=== PATIENT | female | born 1940 | race Caucasian/White ===

== ENCOUNTER 2020-03-26 15:13 | Inpatient (IN) | payer MEDICARE, SELFPAY ==
[2020-03-26 15:19] VITALS: BMI 37.7
--- NOTE | 2020-03-26 15:46 | HMH.PHAINT ---
MEDICATION RECONCILIATION COMPLETED ON PATIENT USING EXTERNAL FILL HISTORY FROM PHARMACY AND LIT FROM MD OFFICE. -ENA AMBRIZD
[2020-03-26 16:00] VITALS: BP 189/77; PULSE 61; RESP 18; TEMP 36.5; O2SAT 97
[2020-03-26 16:40] LABS: Glucose,Random 26 mg/dL (74-100)
[2020-03-26 17:26] LABS: Basophils % 0.3 % (0.1-2.0); Eosinophils # 0.2 K/mm3 (0.0-0.4); Eosinophils % 2.2 % (0.1-12.0); Hematocrit 32.3 % (37.0-47.0); Hemoglobin 10.9 g/dL (12.2-16.2); Lymphocytes # 0.9 K/mm3 (0.7-4.5); Lymphocytes % 9.7 % (10-50); Mean Corpuscular HGB Conc 33.6 g/dL (31.8-35.4); Mean Corpuscular Hemoglobin 31.3 pg (27.0-31.2); Mean Corpuscular Volume 93.1 fl (81-99); Mean Platelet Volume 8.2 fl (7.4-10.4); Monocytes # 0.5 K/mm3 (0.1-1.0); Monocytes % 5.3 % (1.7-9.3); Neutrophils # 7.9 K/mm3 (1.8-7.8); Neutrophils % 82.5 % (37.0-80.0); Platelet Count 235 K/mm3 (142-424); Red Blood Count 3.47 M/mm3 (4.20-5.40); Red Cell Distribution Width 14.7 % (11.5-17.5); White Blood Count 9.6 K/mm3 (4.8-10.8)
[2020-03-26 17:28] LABS: Chloride 103 mmol/L (98-107); Potassium 3.5 mmoL/L (3.5-5.1); Sodium 136 mmol/L (136-145)
--- NOTE | 2020-03-26 17:28 | HMH.ACPN2 ---
Internal Medicine - PN: Subj *Date: 03/26/20 *Time: 17:28 Interval history: See H&P from [facility]. Admitted from office, uncontrolled diabetes, fell at home, hypoglycemia, stasis dermatitis of legs. Exam Vital signs and Labs for Last 24 Hours: Temp Pulse Resp BP Pulse Ox 97.7 F 61 18 189/77 H 97 03/26/20 16:00 03/26/20 16:00 03/26/20 16:00 03/26/20 16:00 03/26/20 16:00 Laboratory Results - last 24 hr 03/26/20 15:44: Random Glucose 26 L* 03/26/20 17:14: WBC 9.6, RBC 3.47 L, Hgb 10.9 L, Hct 32.3 L, MCV 93.1, MCH 31.3 H, MCHC 33.6, RDW 14.7, Plt Count 235, MPV 8.2, Neut % (Auto) 82.5 H, Lymph % (Auto) 9.7 L, [place] % (Auto) 5.3, Eos % (Auto) 2.2, Baso % (Auto) 0.3, Neut # (Auto) 7.9 H, Lymph # (Auto) 0.9, [place] # (Auto) 0.5, Eos # (Auto) 0.2, Baso # (Auto) 0.0 03/26/20 17:14: Sodium 136, Potassium 3.5, Chloride 103 I & O for Last 24 hours: Intake & Output 03/24/20 03/25/20 03/26/20 03/27/20 11:59 11:59 11:59 11:59 Intake Total 120 / 120 Balance 120 / 120 Weight 206 lb 4 oz Assessment and Plan - Assessment and plan all Dx Assessment and Plan for all problems:: See Orders. Case Management consult for placement.
[2020-03-26 17:30] LABS: Alanine Aminotransferase 22 U/L (12-78); Aspartate Amino Transferase 47 U/L (14-36); Blood Urea Nitrogen 25 mg/dl (7-17); Creatinine Clearance Estimated 41 mL/min (50-200); Estimated Glomerular Filt Rate 29 ml/min (>60); GFR (African American) 35 ML/MIN (>60)
[2020-03-26 17:31] LABS: Albumin Level 3.5 g/dl (3.5-5.0); Albumin/Globulin Ratio 1.2 (1.1-1.8); Alkaline Phosphatase 82 U/L (38-126); Anion Gap 8.5 mEq/L (5-15); Bilirubin,Total 0.8 mg/dl (0.2-1.3); Calcium 8.5 mg/dl (8.4-10.2); Carbon Dioxide 28 mmol/L (22.0-30.0); Globulin 2.9 g/dL (1.3-3.2); Glucose 68 mg/dl (74-100); Total Protein,Serum 6.4 g/dl (6.3-8.2)
--- NOTE | 2020-03-26 17:48 | XR_ITS ---
PROCEDURE: XR CHEST 2V CLINICAL HISTORY: wheezing COMPARISON: CXR1VP XR chest portable from 09/07/2018 FINDINGS: There is mild cardiomegaly without failure. There are small bilateral pleural effusions with some increased density in the left lung base with obscuration of the left hemidiaphragm No acute bony abnormalities. IMPRESSION: Cardiomegaly with small bilateral effusions with atelectasis or infiltrate in the left lung base Dictated by: Rickie Ornelas MD 03/26/2020 19:23 Electronically signed by Rickie Ornelas MD in [place] 03/26/2020 19:23
[2020-03-26 17:53] LABS: POC Glucose,Bedside 104 (70-110)
--- NOTE | 2020-03-26 19:06 | PC.NURSE ---
report given to omer
[2020-03-26 19:09] LABS: Microscopic, Urine URINE MICROSCOPIC (MICROSCOPIC)
[2020-03-26 19:16] LABS: Appearance,Urine CLEAR (Clear); Bilirubin,Urine Negative (Negative); Blood, Urine 1+ (Negative); Color,Urine YELLOW (Yellow); Glucose,Urine (UA) Negative (Negative); Ketones,Urine Negative (Negative); Leukocyte Esterase,Urine Negative (Negative); Nitrate,Urine Negative (Negative); PH,Urine 6.5 (5.0-8.5); Protein,Urine 3+ (Negative); Specific Gravity, Urine 1.015 (1.005-1.030)
[2020-03-26 19:31] LABS: Bacteria,Urine Trace /lpf; Squamous Epithelial Cell,Urine Occasional #/hpf (0-5); WBC,Urine Occasional #/hpf (0-3)
[2020-03-26 19:42] LABS: POC Glucose,Bedside 76 (70-110)
[2020-03-26 19:42] LABS: POC Glucose,Bedside 57 (70-110)
[2020-03-26 20:00] VITALS: BP 105/55; PULSE 61; RESP 18; TEMP 36.6; O2SAT 97
--- NOTE | 2020-03-26 20:10 | PC.NURSE ---
Pt arrived to floor and pt's son stated that he believed her blood sugar to be low. FSBS performed and was found to be too low to read. Pt awake enough to be given orange juice and PB & elena crackers. Lab called for stat blood glucose lab draw to be obtained per protocol. FSBS obtained 15 min after admin of OJ and PB and elena crackers and found to be 43. 25 ml of D50 admin per hypoglycemia protocol. Rechecked in 15 min from admin (see MAR) and found to be 104. Pt awake, A&Ox4 and able to carry on conversation w/ staff.
[2020-03-26 20:29] LABS: POC Glucose,Bedside 131 (70-110)
[2020-03-26 23:24] LABS: POC Glucose,Bedside 133 (70-110)
[2020-03-27] VITALS (7 sets, daily range): BP systolic 127–152; BP diastolic 55–72; PULSE 62–74; RESP 16–20; TEMP 36.6–37.4; O2SAT 93–98; BMI 37.9
--- NOTE | 2020-03-27 02:57 | PC.NURSE ---
A&OX4. FSBS HAS BEEN NORMOGLYCEMIC THUS FAR. APPETITE EXCELLENT, GIVEN BEDTIME SNACK. X1 ASSIST WITH WALKER, GAIT AND BALANCE GOOD; BASELINE SOA PRESENT WITH MOVEMENT, AUDIBLE EXPIRATORY WHEEZES NOTED. PT. HAS HAD NO C/O N/V/D, PAIN OR DIZZINESS THUS FAR.
[2020-03-27 05:47] LABS: Basophils % 0.2 % (0.1-2.0); Eosinophils # 0.2 K/mm3 (0.0-0.4); Eosinophils % 2.8 % (0.1-12.0); Hematocrit 30.7 % (37.0-47.0); Hemoglobin 10.4 g/dL (12.2-16.2); Lymphocytes # 1.2 K/mm3 (0.7-4.5); Lymphocytes % 13.9 % (10-50); Mean Corpuscular HGB Conc 33.8 g/dL (31.8-35.4); Mean Corpuscular Hemoglobin 31.2 pg (27.0-31.2); Mean Corpuscular Volume 92.3 fl (81-99); Mean Platelet Volume 7.3 fl (7.4-10.4); Monocytes # 0.4 K/mm3 (0.1-1.0); Monocytes % 4.6 % (1.7-9.3); Neutrophils # 6.7 K/mm3 (1.8-7.8); Neutrophils % 78.4 % (37.0-80.0); Platelet Count 197 K/mm3 (142-424); Red Blood Count 3.33 M/mm3 (4.20-5.40); Red Cell Distribution Width 14.7 % (11.5-17.5); White Blood Count 8.6 K/mm3 (4.8-10.8)
--- NOTE | 2020-03-27 05:47 | PC.NURSE ---
0519- FSBS: 41, SECOND CHECK TOO LOW TO READ 0521- NOTIFIED LAB 0525- ADMINISTERED OJ AND PEANUT BUTTER CRACKERS 0535- LAB AT BEDSIDE 0540- RECHECKED FSBS: TOO LOW TO READ; JAYLON COFFMAN 0543- ADMINISTERED 25ML OF 50% DEXTROSE IVP 0544- (DENISA) RETURNED PAGE. NOTIFIED OF ABOVE. NEW ORDER: D/C CURRENT LANTUS ORDER. STAT LAB GLUCOSE: 37 FSBS: 305 POST ADMINISTRATION OF AMP PT. A&OX4 AT THIS TIME, CARRYING ON NORMAL CONVERSATION WITH STAFF. PT. CONTINUES TO EAT PEANUT BUTTER CRACKERS AND WATER.
[2020-03-27 05:53] LABS: Alanine Aminotransferase 18 U/L (12-78); Albumin Level 3.2 g/dl (3.5-5.0); Albumin/Globulin Ratio 1.2 (1.1-1.8); Alkaline Phosphatase 71 U/L (38-126); Anion Gap 9.9 mEq/L (5-15); Aspartate Amino Transferase 43 U/L (14-36); Bilirubin,Total 0.8 mg/dl (0.2-1.3); Blood Urea Nitrogen 31 mg/dl (7-17); Calcium 7.9 mg/dl (8.4-10.2); Carbon Dioxide 27 mmol/L (22.0-30.0); Chloride 97 mmol/L (98-107); Chol/HDL Ratio 2.4 (1-3.5); Cholesterol 97 mg/dl (140-200); Creatinine Clearance Estimated 41 mL/min (50-200); Estimated Glomerular Filt Rate 29 ml/min (>60); GFR (African American) 35 ML/MIN (>60); Globulin 2.7 g/dL (1.3-3.2); HDL Cholesterol 41 mg/dl (40-60); Potassium 3.9 mmoL/L (3.5-5.1); Sodium 130 mmol/L (136-145); Total Protein,Serum 5.9 g/dl (6.3-8.2); Triglycerides 72 mg/dl (30-150); VLDL Cholesterol 14 mg/dL (0-40)
[2020-03-27 05:54] LABS: Glucose 37 mg/dl (74-100)
[2020-03-27 06:15] LABS: Direct LDL Cholesterol 47.37 mg/dL (100-129)
[2020-03-27 06:22] LABS: POC Glucose,Bedside 145 (70-110)
[2020-03-27 06:22] LABS: POC Glucose,Bedside 305 (70-110)
--- NOTE | 2020-03-27 10:22 | P.CONPHA_ITS ---
[facility] Pharm[facility] VTE Monitoring - Patient Demographics Admission date: 03/27/20 Report Date: 03/27/20 Time: 10:22 Allergies/Adverse Reactions: Patient Allergies iodine [IODINE] Allergy (Unknown, Verified 03/26/20 18:44) Height: 1.57 m Weight: 93.553 kg - VTE Risk Labs: VTE Related Lab Results Hgb 10.4 g/dL (12.2-16.2) L 03/27/20 05:35 Hct 30.7 % (37.0-47.0) L 03/27/20 05:35 Plt Count 197 K/mm3 (142-424) 03/27/20 05:35 BUN 31 mg/dl (7-17) H 03/27/20 05:35 Creatinine 1.70 mg/dl (0.52-1.04) H 03/27/20 05:35 Estimated Creat Clear 41 mL/min (50-200) 03/27/20 05:35 Was VTE Risk Assessment Performed: Yes VTE Score: 7 VTE Risk Level: Moderate Risk - Prophylaxis Types of VTE Prophylaxis: TEDS Knee High (TIMOTHY HOSE ORDER PLACED.) Location of Applied Device: Bilateral Lower Extremeties
--- NOTE | 2020-03-27 10:26 | PC.NURSE ---
pt given neb treatment with saline. NO resultrs at this time. Pt given cup and instursed to call out if and when sputum is produced.
[2020-03-27 11:56] LABS: POC Glucose,Bedside 104 (70-110)
--- NOTE | 2020-03-27 12:20 | PC.NURSE ---
THIS RN REMOVED OLD BANDAGE FROM BLE. LEFT LOWER EXTREMITY SMALL AMOUNT OF SEROSANGUINEOUS DRAINAGE NOTED. BLE CLEANED, DRIED, APPLIED SILVER SULFADIAZINE TO LEFT ALEJANDRO. APPLIED NON ADHERENT DRESSING AND WRAPPED BLE WITH HARRIET BANDAGE. PATIENT TOLERATED WELL.
--- NOTE | 2020-03-27 12:38 | HMH.ACPN2 ---
Internal Medicine - PN: Subj *Date: 03/27/20 *Time: 12:38 Interval history: States she feels somewhat better. Still with wheeze. CXR suggest some pleural effusions and patchy infiltrate. Exam Vital signs and Labs for Last 24 Hours: Temp Pulse Resp BP Pulse Ox 99.3 F 65 20 127/62 95 03/27/20 08:00 03/27/20 08:00 03/27/20 08:00 03/27/20 08:00 03/27/20 08:00 Laboratory Results - last 24 hr 03/26/20 15:44: Random Glucose 26 L* 03/26/20 16:38: POC Glucose 104 03/26/20 17:14: WBC 9.6, RBC 3.47 L, Hgb 10.9 L, Hct 32.3 L, MCV 93.1, MCH 31.3 H, MCHC 33.6, RDW 14.7, Plt Count 235, MPV 8.2, Neut % (Auto) 82.5 H, Lymph % (Auto) 9.7 L, [place] % (Auto) 5.3, Eos % (Auto) 2.2, Baso % (Auto) 0.3, Neut # (Auto) 7.9 H, Lymph # (Auto) 0.9, [place] # (Auto) 0.5, Eos # (Auto) 0.2, Baso # (Auto) 0.0 03/26/20 17:14: Sodium 136, Potassium 3.5, Chloride 103, Carbon Dioxide 28, Anion Gap 8.5, BUN 25 H, Creatinine 1.70 H, Estimated Creat Clear 41, Estimated GFR 29 L, Est GFR ( Amer) 35 L, Glucose 68 L, Calcium 8.5, Total Bilirubin 0.8, AST 47 H, ALT 22, Alkaline Phosphatase 82, Total Protein 6.4, Albumin 3.5, Globulin 2.9, Albumin/Globulin Ratio 1.2 03/26/20 18:39: POC Glucose 57 L 03/26/20 18:58: POC Glucose 76 03/26/20 19:03: Urine Color Yellow, Urine Appearance Clear, Urine pH 6.5, Ur Specific [place] 1.015, Urine Protein 3+, Urine Glucose (UA) Negative, Urine Ketones Negative, Urine Blood 1+, Urine Nitrate Negative, Urine Bilirubin Negative, Urine Urobilinogen 1.0, Ur Leukocyte Esterase Negative, Urine WBC Occasional, Ur Squamous Epith Cells Occasional, Urine Bacteria Trace 03/26/20 20:19: POC Glucose 131 H 03/26/20 23:10: POC Glucose 133 H 03/27/20 05:35: WBC 8.6, RBC 3.33 L, Hgb 10.4 L, Hct 30.7 L, MCV 92.3, MCH 31.2, MCHC 33.8, RDW 14.7, Plt Count 197, MPV 7.3 L, Neut % (Auto) 78.4, Lymph % (Auto) 13.9, [place] % (Auto) 4.6, Eos % (Auto) 2.8, Baso % (Auto) 0.2, Neut # (Auto) 6.7, Lymph # (Auto) 1.2, [place] # (Auto) 0.4, Eos # (Auto) 0.2, Baso # (Auto) 0.0 03/27/20 05:35: Sodium 130 L, Potassium 3.9, Chloride 97 L, Carbon Dioxide 27, Anion Gap 9.9, BUN 31 H, Creatinine 1.70 H, Estimated Creat Clear 41, Estimated GFR 29 L, Est GFR ( Amer) 35 L, Glucose 37 L* D, Calcium 7.9 L, Total Bilirubin 0.8, AST 43 H, ALT 18, Alkaline Phosphatase 71, Total Protein 5.9 L, Albumin 3.2 L, Globulin 2.7, Albumin/Globulin Ratio 1.2, Triglycerides 72, Cholesterol 97 L, LDL Cholesterol Direct 47.37 L, VLDL Cholesterol 14, HDL Cholesterol 41, Cholesterol/HDL Ratio 2.4 03/27/20 05:35: Hemoglobin A1c 7.0 H 03/27/20 05:44: POC Glucose 305 H* 03/27/20 06:07: POC Glucose 145 H 03/27/20 11:42: POC Glucose 104 I & O for Last 24 hours: Intake & Output 03/25/20 03/26/20 03/27/20 03/28/20 11:59 11:59 11:59 11:59 Intake Total 1583 / 1583 240 / 240 Balance 1583 / 1583 240 / 240 Weight 206 lb 3.985 oz - Constitutional no acute distress - *Routine Respiratory Exam Present: CTA bilaterally, wheezes (upper airway, expiratory) - *Routine Cardiovascular Exam Present: RRR, bradycardia - *Routine Abdominal Exam Present: soft (nontender) - *Routine Extremities Exam Present: edema (somewhat less, less erythema, left still weeping.) - *Routine Neurological Exam Present: alert, oriented X3 Assessment and Plan (1) Pneumonia Current visit: Yes Status: Acute Category: Medical Code(s): J18.9 - Pneumonia, unspecified organism (2) Pleural effusion Current visit: Yes Status: Acute Category: Medical Code(s): J90 - Pleural effusion, not elsewhere classified (3) Hypoglycemia Current visit: Yes Status: Acute Category: Medical Code(s): E16.2 - Hypoglycemia, unspecified (4) Fall Current visit: Yes Status: Acute Category: Medical Code(s): W19.XXXA - Unspecified fall, initial encounter (5) Poorly controlled diabetes mellitus Current visit: Yes Status: Acute Category: Medical Code(s): E11.65 - Type 2 diabetes mellit
[2020-03-27 17:00] LABS: POC Glucose,Bedside 88 (70-110)
--- NOTE | 2020-03-27 17:51 | PC.NURSE ---
Addendum entered by Pauline Bernabe RN 03/27/20 18:10: DURING 1700 ADL CHECK THIS RN NOTICED PATIENT HAD DISCHARGE FROM EYES. THIS RN INQUIRED ABOUT IT TO PATIENT AND SON, BOTH STATED THAT IT IS JUST ALLERGIES. PATIENT STATED SHE WASHES HER EYES WITH BABY SHAMPOO. THIS RN ASKED OB FOR BABY SHAMPOO, THIS RN ASSISTED PATIENT WITH WASHING HER EYES AND EDUCATED THE IMPORTANCE OF NOT WHIPPING THE SECOND EYE WITH THE SAME CLOTH USED ON THE FIRST EYE. DISCHARGE FROM EYES WERE GREEN AND THICK. PATIENT VERBALIZED AN UNDERSTANDING. Original Note: PATIENT A&O X4, LUNGS AUDIBLE WHEEZING, PULSES EQUAL. PATIENT FSBS: STABLE THRU THIS RN SHIFT. PATIENT'S SON TEA AZAR PROVIDED CONTACT INFORMATION TO THIS RN, THIS RN PHONED ADMINISTRATION AND SPOKE WITH JUANA. INFORMATION IS TEA AZAR, . PATIENT AND SON STATE THAT MR. AZAR IS MEDICAL PROXY AND DURABLE POA. THIS RN ENCOURAGED MR. AZAR TO BRING IN PAPERWORK. PATIENT'S SON BROUGHT IN HOME MEDICATIONS WHICH IS IN LOCK DRAWER. NO OTHER CONCERNS AT THIS TIME.
[2020-03-27 20:37] LABS: POC Glucose,Bedside 130 (70-110)
[2020-03-27 23:50] LABS: POC Glucose,Bedside 150 (70-110)
[2020-03-28] VITALS (7 sets, daily range): BP systolic 134–163; BP diastolic 64–80; PULSE 64–77; RESP 14–20; TEMP 36.4–37; O2SAT 95–97; BMI 39.6
--- NOTE | 2020-03-28 03:31 | PC.NURSE ---
A&OX4. PT HAS TOLERATED ROOM AIR WELL THROUGHOUT SHIFT. EXPIRATORY AND AUDIBLE WHEEZES NOTED THROUGHOUT. NONPRODUCTIVE, DRY, INTERMITTENT COUGH NOTED. RESPIRATIONS REGULAR AND UNLABORED. +2 PITTING EDEMA NOTED IN LLE. +1 PITTING EDEMA NOTED IN RLE. 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 HEART RATE REGULAR. D5W 1/2 NS INFUSING AT 100ML/HR. ACTIVE BOWEL SOUNDS HEARD IN ALL 4 QUADRANTS. SOFT AND NONTENDER. PT REPORTS NO PAIN THROUGHOUT SHIFT. PT REMAINS AFEBRILE. PT REPORTS NO SOA THROUGHOUT SHIFT. PT HAS BEEN CONTINENT/INCONTINENT THIS SHIFT. USED THE BATHROOM ONCE W 2 PERSON ASSIST. PT TOLERATED WELL BUT WEAKNESS WAS NOTED. CLEAR DARK YELLOW URINE NOTED. NO BM THIS SHIFT. FSBS WITHIN NORMAL LIMITS THUS FAR. PT RESTING IN BED AT THIS TIME. BED IN LOWEST POSITION. CALL LIGHT WITHIN REACH. VSS. NO CONCERNS AT THIS TIME. WILL CONTINUE TO MONITOR.
[2020-03-28 06:24] LABS: POC Glucose,Bedside 152 (70-110)
[2020-03-28 06:47] LABS: Basophils % 0.3 % (0.1-2.0); Eosinophils # 0.3 K/mm3 (0.0-0.4); Eosinophils % 3.3 % (0.1-12.0); Hemoglobin 9.6 g/dL (12.2-16.2); Lymphocytes # 1.4 K/mm3 (0.7-4.5); Lymphocytes % 17.1 % (10-50); Mean Corpuscular HGB Conc 32.7 g/dL (31.8-35.4); Mean Corpuscular Volume 94.6 fl (81-99); Mean Platelet Volume 7.4 fl (7.4-10.4); Monocytes # 0.4 K/mm3 (0.1-1.0); Monocytes % 5.1 % (1.7-9.3); Neutrophils # 5.8 K/mm3 (1.8-7.8); Neutrophils % 74.2 % (37.0-80.0); Platelet Count 187 K/mm3 (142-424); Red Blood Count 3.09 M/mm3 (4.20-5.40); Red Cell Distribution Width 14.6 % (11.5-17.5); White Blood Count 7.9 K/mm3 (4.8-10.8)
[2020-03-28 06:49] LABS: Hematocrit 29.2 % (37.0-47.0)
[2020-03-28 06:54] LABS: Anion Gap 12.4 mEq/L (5-15); Blood Urea Nitrogen 36 mg/dl (7-17); Calcium 7.9 mg/dl (8.4-10.2); Carbon Dioxide 25 mmol/L (22.0-30.0); Chloride 96 mmol/L (98-107); Estimated Glomerular Filt Rate 24 ml/min (>60); GFR (African American) 29 ML/MIN (>60); Glucose 152 mg/dl (74-100); Potassium 4.4 mmoL/L (3.5-5.1); Sodium 129 mmol/L (136-145)
[2020-03-28 06:59] LABS: Creatinine Clearance Estimated 36 mL/min (50-200)
[2020-03-28 11:06] LABS: POC Glucose,Bedside 228 (70-110)
--- NOTE | 2020-03-28 12:50 | XR_ITS ---
PROCEDURE: XR CHEST 2V CLINICAL HISTORY: FOLLOW-UP PNEUMONIA COMPARISON: CXR1VP XR chest portable from 09/07/2018 XR CHEST 2V from 03/26/2020 FINDINGS: There is cardiomegaly with mild pulmonary venous congestion suggesting mild CHF. There are small bilateral pleural effusions. Patchy density is present in the right lung base which may be due to an area of atelectasis or infiltrate. The left lung base is not as well penetrated as on the previous exam. No acute bony abnormalities. IMPRESSION: Mild CHF with small bilateral effusions with atelectasis or infiltrate in the right lung base which appears slightly worse Dictated by: Rickie Ornelas MD 03/28/2020 14:07 Electronically signed by Rickie Ornelas MD in [place] 03/28/2020 14:07
--- NOTE | 2020-03-28 13:24 | HMH.ACPN2 ---
Internal Medicine - PN: Subj *Date: 03/28/20 *Time: 13:24 Interval history: She states that she slept well but she still wheezing. Exam Vital signs and Labs for Last 24 Hours: Temp Pulse Resp BP Pulse Ox 97.8 F 68 18 137/65 97 03/28/20 08:00 03/28/20 08:00 03/28/20 08:00 03/28/20 08:00 03/28/20 08:00 Laboratory Results - last 24 hr 03/27/20 16:39: POC Glucose 88 03/27/20 19:59: POC Glucose 130 H 03/27/20 23:44: POC Glucose 150 H 03/28/20 06:12: POC Glucose 152 H 03/28/20 06:35: WBC 7.9, RBC 3.09 L, Hgb 9.6 L, Hct 29.2 L, MCV 94.6, MCH 31.0, MCHC 32.7, RDW 14.6, Plt Count 187, MPV 7.4, Neut % (Auto) 74.2, Lymph % (Auto) 17.1, [place] % (Auto) 5.1, Eos % (Auto) 3.3, Baso % (Auto) 0.3, Neut # (Auto) 5.8, Lymph # (Auto) 1.4, [place] # (Auto) 0.4, Eos # (Auto) 0.3, Baso # (Auto) 0.0 03/28/20 06:35: Sodium 129 L, Potassium 4.4, Chloride 96 L, Carbon Dioxide 25, Anion Gap 12.4, BUN 36 H, Creatinine 2.00 H, Estimated Creat Clear 36, Estimated GFR 24 L, Est GFR ( Amer) 29 L, Glucose 152 H, Calcium 7.9 L 03/28/20 10:49: POC Glucose 228 H I & O for Last 24 hours: Intake & Output 03/26/20 03/27/20 03/28/20 03/29/20 11:59 11:59 11:59 11:59 Intake Total 1583 / 1583 2520 / 2520 Output Total 400 / 400 Balance 1583 / 1583 2120 / 2120 Weight 206 lb 3.985 oz 215 lb 6 oz Microbiology Reports for the Last 24 Hours: Microbiology 03/27/20 12:45 Sputum - Expectorated Sputum Gram Stain - Final 03/27/20 12:45 Sputum - Expectorated Sputum Sputum Culture - Final - Constitutional no acute distress - *Routine Respiratory Exam Present: decreased breath sounds, wheezes (Today I hear some wheezes on the right.) - *Routine Cardiovascular Exam Present: RRR - *Routine Extremities Exam Present: edema (Rommel bandages in place.) Assessment and Plan (1) Pneumonia Current visit: Yes Status: Acute Category: Medical Code(s): J18.9 - Pneumonia, unspecified organism (2) Pleural effusion Current visit: Yes Status: Acute Category: Medical Code(s): J90 - Pleural effusion, not elsewhere classified (3) Hypoglycemia Current visit: Yes Status: Acute Category: Medical Code(s): E16.2 - Hypoglycemia, unspecified (4) Fall Current visit: Yes Status: Acute Category: Medical Code(s): W19.XXXA - Unspecified fall, initial encounter (5) Poorly controlled diabetes mellitus Current visit: Yes Status: Acute Category: Medical Code(s): E11.65 - Type 2 diabetes mellitus with hyperglycemia (6) Leg abrasion Current visit: Yes Status: Acute Category: Medical Code(s): S80.819A - Abrasion, unspecified lower leg, initial encounter (7) Stasis dermatitis of both legs Current visit: Yes Status: Acute Category: Medical Code(s): I87.2 - Venous insufficiency (chronic) (peripheral) - Assessment and plan all Dx Assessment and Plan for all problems:: Recheck chest x-ray. 1 dose of Solu-Medrol ordered.
[2020-03-28 16:44] LABS: POC Glucose,Bedside 165 (70-110)
--- NOTE | 2020-03-28 17:41 | PC.NURSE ---
PATIENT A&OX4, LUNGS WHEEZING, PULSES EQUAL. PATIENT SPENT MOST OF THIS RN SHIFT UP TO CHAIR. PATIENT REFUSED 1645 INSULIN ADMINISTRATION DUE TO, SHE FEEL SHE DROPPED TOO MUCH FROM THIS AM. FSBS WAS 228 AT 1130; FSBS AT 1630 WAS 165. PATIENT AMBULATES WITH WALKER X1 ASSIST AND TOLERATES WELL. NO OTHER CONCERNS AT THIS TIME.
[2020-03-28 21:27] LABS: POC Glucose,Bedside 231 (70-110)
--- NOTE | 2020-03-28 21:35 | PC.NURSE ---
THIS RN GAVE PT A SHOWER THIS EVENING PER REQUEST. POST SHOWER THIS RN REDRESSED HER BLISTERS ON BLE. HER LLE NOTED WITH OPEN BLISTER WITH SERSANG DRAINAGE. APPLY SILVADENE CREAM TO OPEN BLISTER. REAPPLIED NONADHESIVE PADS AND HARRIET BANDAGES. RLE NOTED WITH REDNESS AND FLUID FILLED BLISTERS WITH EDEMA. PT TOLERATED DSG CHANGE WELL.
[2020-03-28 23:38] LABS: POC Glucose,Bedside 329 (70-110)
[2020-03-29] VITALS (9 sets, daily range): BP systolic 140–192; BP diastolic 80–90; PULSE 73–88; RESP 14–21; TEMP 36.6–36.8; O2SAT 95–98; BMI 39.0; BMI 38.9
[2020-03-29 05:47] LABS: POC Glucose,Bedside 356 (70-110)
[2020-03-29 05:54] LABS: Basophils % 0.1 % (0.1-2.0); Eosinophils % 0.1 % (0.1-12.0); Lymphocytes # 0.5 K/mm3 (0.7-4.5); Lymphocytes % 4.7 % (10-50); Mean Corpuscular HGB Conc 33.2 g/dL (31.8-35.4); Mean Corpuscular Hemoglobin 31.7 pg (27.0-31.2); Mean Corpuscular Volume 95.5 fl (81-99); Monocytes # 0.2 K/mm3 (0.1-1.0); Monocytes % 1.7 % (1.7-9.3); Neutrophils # 9.6 K/mm3 (1.8-7.8); Neutrophils % 93.5 % (37.0-80.0); Platelet Count 237 K/mm3 (142-424); Red Blood Count 3.56 M/mm3 (4.20-5.40); Red Cell Distribution Width 14.5 % (11.5-17.5); White Blood Count 10.3 K/mm3 (4.8-10.8)
[2020-03-29 05:59] LABS: MANUAL DIFFERENTIAL MANUAL DIFFERENTIAL (MANUAL DIFF)
[2020-03-29 06:14] LABS: Chloride 99 mmol/L (98-107); Lymphocytes % 3 % (10-50); Neutrophils % 92 % (42-76); Platelet Estimate Normal; Potassium 5.1 mmoL/L (3.5-5.1); RBC Morphology Normal; Rouleaux 1+; Sodium 135 mmol/L (136-145); Total Cells Counted 100
[2020-03-29 06:17] LABS: Anion Gap 18.1 mEq/L (5-15); Blood Urea Nitrogen 45 mg/dl (7-17); Carbon Dioxide 23 mmol/L (22.0-30.0); Creatinine Clearance Estimated 36 mL/min (50-200); Estimated Glomerular Filt Rate 24 ml/min (>60); GFR (African American) 29 ML/MIN (>60); Glucose 346 mg/dl (74-100)
[2020-03-29 06:18] LABS: Hemoglobin 11.3 g/dL (12.2-16.2)
--- NOTE | 2020-03-29 06:46 | PC.NURSE ---
A&O X4. PT RESTED WELL WITH EYES CLOSED THIS SHIFT WITH NO COMPLAINTS. DENIES PAIN. TOLERATED RA WELL WITH NO C/O SOA. AUDIBLE WHEEZING NOTED UPON INITIAL ASSESSMENT. NO RESPIRATORY DISTRESS NOTED THIS SHIFT. SPUTUM NEEDED. INTERMITTENT NON-PRODUCTIVE COUGH NOTED T/O SHIFT. ADEQUATE URINE OUTPUT NOTED THIS SHIFT. URINE NOTED CLEAR AND BRIGHT YELLOW IN COLOR. MILD EDEMA NOTED TO BLE. DSG TO BLE NOTED C/D/I. VSS. AMB WELL WITH ASSIST X1 AND WALKER. PT NOTED WITH MORE STRENGTH THIS SHIFT VERSUS PREVIOUS INDEPENDENT JEWELER WITH RN. REMAINS SAFE. CALL LIGHT WITHIN REACH. WILL CONTINUE TO MONITOR.
--- NOTE | 2020-03-29 08:25 | HMH.ACPN2 ---
Internal Medicine - PN: Subj *Date: 03/29/20 *Time: 08:25 Interval history: Feels she is better this a.m. She states she slept. She is not short of breath. She denies chest pain. She is eating without problems. States the food is really good. She is not sure when her bowels last moved. She is voiding QS. Weight is 212 this morning. O2 sats are good on room air. Sodium has improved to 135 with a potassium of 5.1. BUN is 45 and creatinine is 2. Blood sugars have been elevated 329, 356, and 346. Remains on sliding scale. Repeat chest x-ray 03/28/2020 revealed mild CHF with small bilateral effusions and with atelectasis or infiltrate in the right lung base which appears slightly worse. Exam Vital signs and Labs for Last 24 Hours: Temp Pulse Resp BP Pulse Ox 97.8 F 88 14 140/80 96 03/29/20 03:48 03/29/20 06:05 03/29/20 03:48 03/29/20 03:48 03/29/20 06:05 Laboratory Results - last 24 hr 03/28/20 10:49: POC Glucose 228 H 03/28/20 16:35: POC Glucose 165 H 03/28/20 21:11: POC Glucose 231 H 03/28/20 23:30: POC Glucose 329 H* 03/29/20 05:30: POC Glucose 356 H* 03/29/20 05:41: WBC 10.3 D, RBC 3.56 L, Hgb 11.3 L D, Hct 34.0 L, MCV 95.5, MCH 31.7 H, MCHC 33.2, RDW 14.5, Plt Count 237 D, MPV 8.0, Neut % (Auto) 93.5 H, Lymph % (Auto) 4.7 L, [place] % (Auto) 1.7, Eos % (Auto) 0.1, Baso % (Auto) 0.1, Neut # (Auto) 9.6 H, Lymph # (Auto) 0.5 L, [place] # (Auto) 0.2, Eos # (Auto) 0.0, Baso # (Auto) 0.0, Total Counted 100, Neutrophils % (Manual) 92 H, Band Neutrophils % 5.0, Lymphocytes % (Manual) 3 L, Platelet Estimate Normal, RBC Morphology Normal, Rouleaux 1+ 03/29/20 05:41: Sodium 135 L, Potassium 5.1, Chloride 99, Carbon Dioxide 23, Anion Gap 18.1 H, BUN 45 H, Creatinine 2.00 H, Estimated Creat Clear 36, Estimated GFR 24 L, Est GFR ( Amer) 29 L, Glucose 346 H D, Calcium 9.0 D I & O for Last 24 hours: Intake & Output 03/26/20 03/27/20 03/28/20 03/29/20 11:59 11:59 11:59 11:59 Intake Total 1583 / 1583 2520 / 2520 240 / 240 Output Total 400 / 400 2500 / 2500 Balance 1583 / 1583 2120 / 2120 -2260 / -2260 Weight 206 lb 3.985 oz 215 lb 6 oz 212 lb 6 oz - Constitutional no acute distress Comments: Sitting on the bedside and eating her breakfast. Appears comfortable. She is conversant. - *Routine Respiratory Exam Comments: Bilateral fine crackles in the bases. - *Routine Cardiovascular Exam Present: RRR - *Routine Extremities Exam Comments: Rommel wraps on bilateral lower extremities. - *Routine Neurological Exam Present: alert, oriented X3 Assessment and Plan (1) Pneumonia Current visit: Yes Status: Acute Category: Medical Code(s): J18.9 - Pneumonia, unspecified organism (2) Pleural effusion Current visit: Yes Status: Acute Category: Medical Code(s): J90 - Pleural effusion, not elsewhere classified (3) Hypoglycemia Current visit: Yes Status: Acute Category: Medical Code(s): E16.2 - Hypoglycemia, unspecified (4) Fall Current visit: Yes Status: Acute Category: Medical Code(s): W19.XXXA - Unspecified fall, initial encounter (5) Poorly controlled diabetes mellitus Current visit: Yes Status: Acute Category: Medical Code(s): E11.65 - Type 2 diabetes mellitus with hyperglycemia (6) Leg abrasion Current visit: Yes Status: Acute Category: Medical Code(s): S80.819A - Abrasion, unspecified lower leg, initial encounter (7) Stasis dermatitis of both legs Current visit: Yes Status: Acute Category: Medical Code(s): I87.2 - Venous insufficiency (chronic) (peripheral) - Assessment and plan all Dx Assessment and Plan for all problems:: Care management to see patient today. Discussed disposition with patient. She is interested in home health. Will have physical therapy to evaluate her today. Continue with pneumonia protocol.
--- NOTE | 2020-03-29 09:53 | HMH.PTEV ---
Physical Therapy Evaluation Rehab PT IP Evaluation Start: 03/29/20 08:24 Freq: ONCE Status: Active Protocol: Document 03/29/20 09:49 MARY JO (Rec: 03/29/20 09:52 MARY JO [id number]) Subjective/History History History See H&P from A. Admitted from office, uncontrolled diabetes, fell at home, hypoglycemia, stasis dermatitis of legs Subjective Subjective Pt reports c/o wheezing w/ activity Rehab PT IP Eval Objective Appearance Patient Behavior Appropriate,Cooperative Patient Orientation Person,Place,Time Difficulty following instructions none Speech Pattern Appropriate Ambulation Patient Able to Ambulate Yes Ambulation Observation IP General Gait Pattern Observation Shuffling Step Ambulation Distance (feet) 30 Ambulation Assistive Device Rolling Walker Ambulation Ability Contact Guard/Hand Hold Balance Ability to Arise Able, uses arms to help Sitting Balance Steady, safe Standing Balance Steady, wide stance Dynamic Sitting Balance Ability Good Dynamic Standing Balance Ability Fair Transfers Chair Transfer Ability Supervision/Stand by Sit to Stand Bed Transfer Ability Supervision/Stand by Sit to Stand Chair Transfer Ability Supervision/Stand by Rehab PT IP prob,goals,plan Problems Date of Evaluation: 03/29/20 PT IP Problems Gait,Self care Rehab Potential Rehab Potential Good Equipment Needs Assistive Devices Rolling / Wheeled Walker Plan PT Intervention Plan Transfers,Gait,Self care, Safety,Therapeutic Exercise PT Plan Frequency BID Duration LOS Discharge Goals Sit to Stand Chair Transfer Ability Supervision/Stand by Ambulation Assistive Device Rolling Walker Ambulation Distance (feet) 30 Discharge Plan PT Discharge Plan Pt to return home once medically stable - pt would benefit from continued therapy and supervision at home G -code Required Yes Eval Complexity Eval Charge Codes 84971 - Low Complexity G Codes PT Current Status Mobility PT Current Status Modifier CJ-At least 20% but less than 40% impaired, limited or restricted PT Goal Status Mobility PT Goal Status Modifer CJ-At least 20% but less than 40% impaired, limited or
[2020-03-29 09:54] LABS: POC Glucose,Bedside 41 (70-110)
[2020-03-29 09:54] LABS: POC Glucose,Bedside < 40 (70-110)
[2020-03-29 09:54] LABS: POC Glucose,Bedside < 40 (70-110)
[2020-03-29 09:54] LABS: POC Glucose,Bedside < 40 (70-110)
[2020-03-29 09:54] LABS: POC Glucose,Bedside < 40 (70-110)
[2020-03-29 09:54] LABS: POC Glucose,Bedside 43 (70-110)
--- NOTE | 2020-03-29 10:01 | PC.NURSE ---
nurse aware of morning bp being high, rechecked at 10am, nurse aware
[2020-03-29 11:58] LABS: POC Glucose,Bedside 365 (70-110)
--- NOTE | 2020-03-29 16:52 | PC.NURSE ---
Pt has been pleasant and cooperative this shift. A&O X4. No complaints of pain or SOA. Assessment reveals that lung sounds are clear and non-pitting edema is noted to BUE/BLE. Pt is on room air with sats. >95%. Pt is a stand-by assist when ambulating back/forth to the bathroom and throughout the room. Pt also uses a walker when ambulating. Brief is in place to due to occasional stress incontinence. Pt refuses TIMOTHY hose due to bilateral paul wounds and non-skid socks are in place to bilateral feet. Bilateral paul wounds are covered with Silvadene, telfa pads, and an HARRIET wrap. Pt has sat up in the chair for the majority of the day. Pt has had 1 BM this shift and no trouble urinating. Appetite and PO intake are good and pt eats majority of most meals. 20 G peripheral IV in the LT hand is patent and SL. FSBS results have been 365 and 259, both of which required insulin coverage per sliding scale. B/P has been elevated today and Yris Ibarra APRN was notified. Atenolol dose was then changed to match what the pt takes at home everyday, which is 25 MG in the AM and 50 MG in the evening. All other vital signs have been stable this shift. Call light within reach. Will continue to monitor.
[2020-03-29 16:57] LABS: POC Glucose,Bedside 259 (70-110)
--- NOTE | 2020-03-29 19:08 | PC.NURSE ---
report given to chris
[2020-03-29 23:47] LABS: POC Glucose,Bedside 407 (70-110)
[2020-03-30] VITALS (10 sets, daily range): BP systolic 105–167; BP diastolic 58–87; PULSE 65–78; RESP 16–20; TEMP 36.3–36.6; O2SAT 93–100; BMI 39.2
--- NOTE | 2020-03-30 03:54 | PC.NURSE ---
A&OX4 pt has no complaints of pain this shift. Pt does get SOA on exertion but returns to baseline quickly. pt has ambulated to BR X 1. Rommel wraps in place to BLE. pt has rested well this shift.
--- NOTE | 2020-03-30 04:00 | PC.NURSE ---
EDUCATED PT. ON HOSPITAL POLICY OF CHANGING IV SITE EVERY 72 HOURS AND THAT HER IV IS DUE TO BE CHANGED. PT. REFUSES IV SITE TO BE CHANGED AT THIS TIME; PT. VERBALIZED UNDERSTANDING OF HOSPITAL POLICY.
[2020-03-30 06:10] LABS: POC Glucose,Bedside 247 (70-110)
[2020-03-30 06:50] LABS: Chloride 100 mmol/L (98-107); Potassium 4.9 mmoL/L (3.5-5.1); Sodium 136 mmol/L (136-145)
[2020-03-30 06:53] LABS: Anion Gap 14.9 mEq/L (5-15); Blood Urea Nitrogen 54 mg/dl (7-17); Calcium 9.1 mg/dl (8.4-10.2); Carbon Dioxide 26 mmol/L (22.0-30.0); Creatinine Clearance Estimated 38 mL/min (50-200); Estimated Glomerular Filt Rate 26 ml/min (>60); GFR (African American) 31 ML/MIN (>60); Glucose 237 mg/dl (74-100)
--- NOTE | 2020-03-30 08:47 | HMH.ACPN ---
Internal Medicine - PN: Subj *Date: 03/30/20 *Time: 08:47 Exam Vital signs and Labs for Last 24 Hours: Temp Pulse Resp BP Pulse Ox 97.6 F 70 18 154/69 H 97 03/30/20 08:00 03/30/20 08:00 03/30/20 08:00 03/30/20 08:00 03/30/20 08:00 Laboratory Results - last 24 hr 03/26/20 15:35: POC Glucose < 40 L* 03/26/20 15:52: POC Glucose < 40 L* 03/26/20 16:16: POC Glucose 43 L* 03/27/20 05:19: POC Glucose 41 L* 03/27/20 05:21: POC Glucose < 40 L* 03/27/20 05:36: POC Glucose < 40 L* 03/29/20 11:43: POC Glucose 365 H* 03/29/20 16:47: POC Glucose 259 H 03/29/20 23:35: POC Glucose 407 H* 03/30/20 05:45: POC Glucose 247 H 03/30/20 06:20: Sodium 136, Potassium 4.9, Chloride 100, Carbon Dioxide 26, Anion Gap 14.9, BUN 54 H, Creatinine 1.90 H, Estimated Creat Clear 38, Estimated GFR 26 L, Est GFR ( Amer) 31 L, Glucose 237 H, Calcium 9.1 I & O for Last 24 hours: Intake & Output 03/27/20 03/28/20 03/29/20 03/30/20 23:59 23:59 23:59 23:59 Intake Total 2281 / 2281 1582 / 1582 650 / 650 480 / 480 Output Total 400 / 400 1600 / 2500 2100 / 2100 Balance 1881 / 188 -18 / -918 -1450 / -1450 480 / 480 Weight 93.553 kg 97.692 kg 96 kg 96.615 kg Assessment and Plan (1) Pneumonia Current visit: Yes Status: Acute Category: Medical Code(s): J18.9 - Pneumonia, unspecified organism (2) Pleural effusion Current visit: Yes Status: Acute Category: Medical Code(s): J90 - Pleural effusion, not elsewhere classified (3) Hypoglycemia Current visit: Yes Status: Acute Category: Medical Code(s): E16.2 - Hypoglycemia, unspecified (4) Fall Current visit: Yes Status: Acute Category: Medical Code(s): W19.XXXA - Unspecified fall, initial encounter (5) Poorly controlled diabetes mellitus Current visit: Yes Status: Acute Category: Medical Code(s): E11.65 - Type 2 diabetes mellitus with hyperglycemia (6) Leg abrasion Current visit: Yes Status: Acute Category: Medical Code(s): S80.819A - Abrasion, unspecified lower leg, initial encounter (7) Stasis dermatitis of both legs Current visit: Yes Status: Acute Category: Medical Code(s): I87.2 - Venous insufficiency (chronic) (peripheral) The patient's infection will respond to the chosen ABx?: Yes Is the patient receiving the right drug, dose, and route?: Yes Could a more targeted ABx be ordered?: No (WBC WNL, AFEBRILE)
--- NOTE | 2020-03-30 09:08 | HMH.ACPN2 ---
Internal Medicine - PN: Subj *Date: 03/30/20 *Time: 09:08 Interval history: She seems to be doing better. Blood sugars have run high. We need to restart some long-acting insulin. She still has some upper respiratory wheeze but her lungs are clear today. She needs COVID testing if she is going to be placed in a nursing facility. Chest x-ray was reviewed yesterday with Dr. Ornelas. Exam Vital signs and Labs for Last 24 Hours: Temp Pulse Resp BP Pulse Ox 97.6 F 70 18 154/69 H 97 03/30/20 08:00 03/30/20 08:00 03/30/20 08:00 03/30/20 08:00 03/30/20 08:00 Laboratory Results - last 24 hr 03/26/20 15:35: POC Glucose < 40 L* 03/26/20 15:52: POC Glucose < 40 L* 03/26/20 16:16: POC Glucose 43 L* 03/27/20 05:19: POC Glucose 41 L* 03/27/20 05:21: POC Glucose < 40 L* 03/27/20 05:36: POC Glucose < 40 L* 03/29/20 11:43: POC Glucose 365 H* 03/29/20 16:47: POC Glucose 259 H 03/29/20 23:35: POC Glucose 407 H* 03/30/20 05:45: POC Glucose 247 H 03/30/20 06:20: Sodium 136, Potassium 4.9, Chloride 100, Carbon Dioxide 26, Anion Gap 14.9, BUN 54 H, Creatinine 1.90 H, Estimated Creat Clear 38, Estimated GFR 26 L, Est GFR ( Amer) 31 L, Glucose 237 H, Calcium 9.1 I & O for Last 24 hours: Intake & Output 03/27/20 03/28/20 03/29/20 03/30/20 11:59 11:59 11:59 11:59 Intake Total 1583 / 1583 2520 / 2520 600 / 600 770 / 770 Output Total 400 / 400 3100 / 3100 600 / 600 Balance 1583 / 1583 2120 / 2120 -2500 / -2500 170 / 170 Weight 206 lb 3.985 oz 215 lb 6 oz 212 lb 6 oz 213 lb - Constitutional no acute distress - *Routine HEENT Exam Head: Present: normocephalic Eye: Present: PERRL ENT: Present: mucous membranes moist - *Routine Respiratory Exam Present: CTA bilaterally (Upper airway wheezes heard.). Absent: wheezes - *Routine Cardiovascular Exam Present: RRR - *Routine Abdominal Exam Present: soft. Absent: tenderness - *Routine Extremities Exam Absent: edema (Rommel wrapped) - Routine Back/Spine/Pelvis Exam Back/Spine: Present: kyphosis - *Routine Neurological Exam Present: alert, oriented X3 Assessment and Plan (1) Pneumonia Current visit: Yes Status: Acute Category: Medical Code(s): J18.9 - Pneumonia, unspecified organism (2) Pleural effusion Current visit: Yes Status: Acute Category: Medical Code(s): J90 - Pleural effusion, not elsewhere classified (3) Hypoglycemia Current visit: Yes Status: Acute Category: Medical Code(s): E16.2 - Hypoglycemia, unspecified (4) Fall Current visit: Yes Status: Acute Category: Medical Code(s): W19.XXXA - Unspecified fall, initial encounter (5) Poorly controlled diabetes mellitus Current visit: Yes Status: Acute Category: Medical Code(s): E11.65 - Type 2 diabetes mellitus with hyperglycemia (6) Leg abrasion Current visit: Yes Status: Acute Category: Medical Code(s): S80.819A - Abrasion, unspecified lower leg, initial encounter (7) Stasis dermatitis of both legs Current visit: Yes Status: Acute Category: Medical Code(s): I87.2 - Venous insufficiency (chronic) (peripheral) - Assessment and plan all Dx Assessment and Plan for all problems:: I will order Lantus 10 units twice daily. COVID testing is ordered.
[2020-03-30 09:43] LABS: POC Glucose,Bedside 214 (70-110)
--- NOTE | 2020-03-30 09:44 | SW/DCPLANNER ---
SPOKE WITH PATIENT A COUPLE OF TIMES YESTERDAY REGARDING DISCHARGE PLANNING... PATIENT STATED SHE IS WANTING TO GO SOMEWHERE FOR SOME REHAB SERVICES...I EXPLAINED TO HER THAT I HAD SPOKEN WITH [facility] AND THEY DO HAVE A FEMALE BED. PATIENT STATED SHE LIVES IN [facility] AND EVEN ASKED ABOUT [facility] IN [place].. I EXPLAINED TO HER THAT I HAD SENT IT TO [facility] AND IF THEY HAVE SENT IT IN FOR A PRECERT I CAN NOT SEND IT TO ANOTHER FACILITY UNTIL WE HEAR FROM THEM. HER GOAL IS TO RETURN BACK HOME SHE SAID AFTER SHE COMPLETES HER REHAB SERVICES... WAITING TO HEAR BACK TO WHETHER OR NOT SHE CAN DISCHARGE TO [facility]....
[2020-03-30 09:49] LABS: Coronavirus 19 IgG Antibody Negative (Negative); Coronavirus 19 IgM Antibody Negative (Negative)
--- NOTE | 2020-03-30 09:58 | SW/DCPLANNER ---
Addendum entered by Krissy [place] 03/31/20 14:04: Second COVID is NEGATIVE. Patient discharged today to [facility] via son. Addendum entered by Krissy [place] 03/31/20 10:20: I have informed Bernie with [facility] that this patient will discharge today. Currently waiting on COVID second NEGATIVE testing per admission to . I will call patients son once patient is ready for discharge for transportation. Addendum entered by Krissy [place] 03/30/20 17:52: I have spoke with patients son (Herve) regarding discharge plans and transportation. Son is agreeable to transport patient to [facility] once stable for discharge. I will contact son in the AM regarding discharge time. Addendum entered by Krissy [place] 03/30/20 17:15: [facility] has called back and stated that she can accept this patient for tomorrow. I will informed patient today. [facility] has stated aside from NEGATIVE IgG/IgM today patient will need one more negative screening (this can be another blood test) prior to discharge. Addendum entered by Krissy [place] 03/30/20 15:30: [facility] has now stated that this patients insurance does NOT require a precert. [facility] has stated that she has not had time to review referral since faxed at 1PM yesterday (03/29/2020) and that she will review referral tomorrow. I have informed Bernie that patient will be ready for discharge tomorrow pending no setbacks. I have informed patient regarding situation and she has asked that her information be faxed to [facility] in [facility] where he son resides. I have spoke with Bernie at [facility] and she has stated that she does have beds available. Patient information has been faxed to both [facility] and [facility] in [facility] at this time. Addendum entered by Krissy [place] 03/30/20 12:22: [facility] has stated that she has began precert for this patient. I will continue to follow up with patient regarding situation. Original Note: Patient information has been faxed to [facility] at [facility]. I am currently waiting to hear back from [facility] regarding referral. Patient will require a precert and COVID testing.
[2020-03-30 12:15] LABS: POC Glucose,Bedside 195 (70-110)
--- NOTE | 2020-03-30 14:06 | PC.NURSE ---
Addendum entered by Anette Cardoza RN 03/30/20 18:32: pt has had abductor pillow in place while laying in bed today. Original Note: pt states she does not want her dressings to ble to be changed at this time. states it can be done later. will ask again later in shift. pt educated on hospital policy about iv changes every 72hrs. pt cont. to refuse for her iv to be changed. she has done well today with walking to bathroom. does express sob but recovers quickly. vss. will cont. to monitor.
[2020-03-30 17:31] LABS: POC Glucose,Bedside 239 (70-110)
--- NOTE | 2020-03-30 19:06 | PC.NURSE ---
report given to chris
[2020-03-30 21:06] LABS: POC Glucose,Bedside 226 (70-110)
[2020-03-30 23:31] LABS: POC Glucose,Bedside 237 (70-110)
[2020-03-31 04:00] VITALS: BP 133/47; PULSE 66; RESP 18; TEMP 36.6; O2SAT 95
[2020-03-31 05:00] VITALS: BMI 39.2
[2020-03-31 06:20] LABS: POC Glucose,Bedside 146 (70-110)
[2020-03-31 06:30] VITALS: PULSE 65; PULSE 66; O2SAT 96
[2020-03-31 08:00] VITALS: BP 133/61; PULSE 95; RESP 16; TEMP 36.7; O2SAT 93; O2SAT 94
--- NOTE | 2020-03-31 08:32 | P.PN_ITS ---
Internal Medicine - PN: Subj *Date: 03/31/20 *Time: 08:32 Interval history: Patient states she slept at intervals. She ate a cucumber which gave her indigestion last night. Otherwise she is eating without difficulty. She did not feel wheezing yesterday. She does have shortness of breath with exertion. Exam Vital signs and Labs for Last 24 Hours: Temp Pulse Resp BP Pulse Ox 98.0 F 95 H 16 133/61 94 L 03/31/20 08:00 03/31/20 08:00 03/31/20 08:00 03/31/20 08:00 03/31/20 08:00 Laboratory Results - last 24 hr 03/30/20 06:20: SARS-CoV-2 IgG Ab (Rapid) Negative, SARS-CoV-2 IgM Ab (Rapid) Negative 03/30/20 09:31: POC Glucose 214 H 03/30/20 11:46: POC Glucose 195 H 03/30/20 17:18: POC Glucose 239 H 03/30/20 20:26: POC Glucose 226 H 03/30/20 23:23: POC Glucose 237 H 03/31/20 06:06: POC Glucose 146 H I & O for Last 24 hours: Intake & Output 03/28/20 03/29/20 03/30/20 03/31/20 11:59 11:59 11:59 11:59 Intake Total 2520 / 2520 600 / 600 770 / 770 720 / 720 Output Total 400 / 400 3100 / 3100 1000 / 1000 1050 / 1050 Balance 2120 / 2120 -2500 / -2500 -230 / -230 -330 / -330 Weight 215 lb 6 oz 212 lb 6 oz 213 lb 212 lb 14.4 oz - Constitutional no acute distress Comments: Sitting comfortably in chair at bedside. - *Routine Respiratory Exam Comments: Few bibasilar crackles. - *Routine Cardiovascular Exam Present: RRR, murmur - *Routine Abdominal Exam Present: soft, normoactive bowel sounds. Absent: tenderness - *Routine Extremities Exam Present: edema. Absent: calf tenderness - *Routine Skin Exam Comments: Lower leg wound is clean with surrounding erythema. Lower leg with blister and erythema. Bilateral lower leg edema. Assessment and Plan (1) Pneumonia Current visit: Yes Status: Acute Category: Medical Code(s): J18.9 - Pneumonia, unspecified organism (2) Pleural effusion Current visit: Yes Status: Acute Category: Medical Code(s): J90 - Pleural effusion, not elsewhere classified (3) Hypoglycemia Current visit: Yes Status: Acute Category: Medical Code(s): E16.2 - Hypoglycemia, unspecified (4) Fall Current visit: Yes Status: Acute Category: Medical Code(s): W19.XXXA - Unspecified fall, initial encounter (5) Poorly controlled diabetes mellitus Current visit: Yes Status: Acute Category: Medical Code(s): E11.65 - Type 2 diabetes mellitus with hyperglycemia (6) Leg abrasion Current visit: Yes Status: Acute Category: Medical Code(s): S80.819A - Abrasion, unspecified lower leg, initial encounter (7) Stasis dermatitis of both legs Current visit: Yes Status: Acute Category: Medical Code(s): I87.2 - Venous insufficiency (chronic) (peripheral) - Assessment and plan all Dx Assessment and Plan for all problems:: Disposition probably at [facility]. Patient requested swing bed be investigated. Discussed with charge sr. merchandise planner. She will need PT, OT, wound care, and monitoring of blood sugars with adjustment of meds as necessary.
--- NOTE | 2020-03-31 11:34 | HMH.DCSUM ---
General - General Admission date:: 03/26/20 Discharge date: 03/31/20 HPI HPI: Ms. Mcmillan is a 79-year-old female who was seen in the office of [facility] on 03/26/2020 with a history of type 2 diabetes mellitus, hypertension, hyperlipidemia, mild to moderate JAMIA, and optic nerve/eye problems. She presented with complaints of low blood sugars. Patient states that her son has a camera set up at her house. He noted that she fell early in the a.m. Thus he called an ambulance and blood sugar was found to be 34. They elevated it to 168. Patient also stated that she was wheezing badly when this happened. Thus she was brought to the office for evaluation. With physical exam she was in no acute distress. Vital signs revealed a temperature of 98.8, blood pressure of 134/82, heart rate of 63. Oral cavity showed moist mucosa and within normal limits. Neck was supple without lymphadenopathy. Heart was regular rate and rhythm. Lungs sounded clear at this time. Neuro revealed that she was in a wheelchair. Extremities had 1+ leg edema and bilateral stasis changes with an abrasion on the left pretibial area with weeping. Thus she was admitted to [facility] for care management consult and for possible placement a.nd further evaluation and treatment Hospital Course Hospital Course: Patient felt better each day. She continued to wheeze periodically and mostly with exertion. Chest x-ray did suggest some pleural effusion and patchy infiltrate. Antibiotics and duo nebs treatments were initiated. She did have one episode of a hypokalemic episode requiring D5. Lantus was discontinued at this time. She had some pulmonary vascularity on a repeat chest x-ray and she was given Lasix and 1 dose of Solu-Medrol. Sodium was low and she was started on potassium for this. On 03/29 she was not short of breath and denied chest pain. She was eating without problems and actually felt pretty well. O2 sats were good on room air. Sodium had improved to 135 with a potassium 5.1. She remained with renal insufficiency with a BUN of 45 and a creatinine of 2. Blood sugars were elevated and she remained on sliding scale. Care management was consulted for placement. Physical therapy did evaluate the patient. She was started back on 20 of Lasix p.o. and her home medicines. She was also started back on Lantus and adjusted according to her blood sugars. Blood pressure was elevated at one point and atenolol was adjusted. She received silver sulfadiazine for her abrasions on both lower extremities. On 03/31/20 Patient was feeling well. Insulin was adjusted to 15 units at bedtime. She denied any wheezing at this time but continued with exertional shortness of breath. Renal function did slightly improve. Lungs remain clear to auscultation bilateral A&P. Wounds on bilateral lower legs did appear to be improved. At this point [facility] had accepted her for transfer for ongoing rehab with wound care, blood sugar assessment, and physical and Occupational Therapy. On this date she was felt stable to be transferred to [facility] in stable and satisfactory condition. She will continue with Omnicef for pneumonia. She will also continue with the silver sulfadiazine dressings to bilateral lower extremities and other medicines as listed on medication reconciliation sheet. Diet will be diabetic. Follow-up at [facility] by Dr. Betancourt. Objective Vital signs: Temp Pulse Resp BP Pulse Ox 98.0 F 95 H 16 133/61 93 L 03/31/20 08:00 03/31/20 08:00 03/31/20 08:00 03/31/20 08:00 03/31/20 08:00 Narrative: Exam Vital signs and Labs for Last 24 Hours: Temp Pulse Resp BP Pulse Ox 98.0 F 95 H 16 133/61 94 L 03/31/20 08:00 03/31/20 08:00 03/31/20 08:00 03/31/20 08:00 03/31/20 08:00 Laboratory Results - last 24 hr 03/30/20 06:20: SARS-CoV-2 IgG Ab (Rapid) Negative, SARS-CoV-2 IgM Ab (Rapid) Negati
[2020-03-31 11:54] LABS: POC Glucose,Bedside 229 (70-110)
[2020-03-31 13:35] LABS: Coronavirus 19 IgG Antibody Negative (Negative); Coronavirus 19 IgM Antibody Negative (Negative)
--- NOTE | 2020-03-31 14:17 | PC.NURSE ---
REPORT CALLED TO [facility]. PT WILL START TAKING A COURSE OF OMNICEF WHILE AT [facility]. DRESSINGS TO BLE WERE CHANGED THIS MORNING. PT WILL BE TRANSPORTED TO [facility] BY PRIVATE CAR.
== END 2020-03-31 13:40 | DRG 637 ==
PROVIDERS: Admitting Provider Family Medicine; PCP Family Medicine; Visit Provider Family Medicine
DX: E11.649 Type 2 diabetes mellitus with hypoglycemia without coma (principal); J18.9 Pneumonia, unspecified organism; E11.65 Type 2 diabetes mellitus with hyperglycemia; Z79.4 Long term (current) use of insulin; Z79.01 Long term (current) use of anticoagulants; I87.2 Venous insufficiency (chronic) (peripheral); W18.30XA Fall on same level, unspecified, initial encounter; Y92.019 Unspecified place in single-family (private) house as the place of occurrence of the external cause
CPT/HCPCS: 36415; 71046; 80048; 80053; 80061; 81001; 82947; 82962; 83036; 85007; 85025; 86328; 87205; 94640; 94761; 97110; 97116; 97161; 97530